=== PATIENT | male | born 1940 | race Caucasian/White ===

== ENCOUNTER 2017-04-21 18:28 | Emergency (ER) | payer OTHER ==
[~2017-04-21] VITALS: Ht 172.7 cm; Wt 45.4 kg
[2017-04-21 19:09] LABS: Basophils # (auto) 0 uL; Basophils % (auto) 0.3 % (0.0-2.0); CONDITION Y; Eosinophils # (auto) 0.1 uL; Eosinophils % (auto) 0.7 % (0.0-7.0); Hematocrit 36.3 % (41.0-53.0); Hemoglobin 12.1 g/dL (13.5-17.5); Lymphocytes # (auto) 1.1 uL; Lymphocytes % (auto) 13.7 % (10.0-50.0); Mean Corpuscular Hemoglobin 32.2 pg (28.0-32.0); Mean Corpuscular Hgb Conc. 33.2 g/dL (32.0-36.0); Mean Platelet Volume 7.6 fL (7.4-10.4); Monocytes # (auto) 0.8 uL; Monocytes % (auto) 10.1 % (0.0-12.0); Neutrophils # (auto) 6.1 uL; Neutrophils % (auto) 75.2 % (37.0-80.0); Platelet Count (auto) 366 10^3/uL (140-450); Red Cell Distribution Width 14.5 % (11.6-16.0); White Blood Cell 8.1 10^3/uL (4.4-10.8)
[2017-04-21 19:31] LABS: Calcium 8.2 mg/dL (8.5-10.1); Chloride 109 mmol/L (98-107); Potassium 3.8 mmol/L (3.5-5.1); Sodium 141 mmol/L (136-145)
[2017-04-21 19:35] LABS: Albumin 2.3 g/dL (3.4-5.0); Anion Gap 10 (5-15); Aspartate Aminotransferase 195 U/L (15-37); BUN/Creatinine Ratio 32.9; Blood Urea Nitrogen 26 mg/dL (7-18); Carbon Dioxide 22 mmol/L (21-32); GFR African American 122 mL/min; GFR Non-African American 101 mL/min; Glucose 107 mg/dL (74-106); Magnesium 2.3 mg/dL (1.6-2.6)
[2017-04-21 19:39] LABS: Alkaline Phosphatase 127 U/L (45-117); Bilirubin, Total 0.4 mg/dL (0.2-1.0); Total Protein 6.5 g/dL (6.4-8.2)
[2017-04-21] MEDS ORDERED: SODIUM CHLORIDE 0.9% 1,000 ML IV ONE (22:17)
[2017-04-21 23:00] LABS: INR 0.95 (0.9-1.15); Partial Thromboplastin Time 29.5 sec (22.64-33.71); Prothrombin Time 10.4 sec (9.37-12.3)
[2017-04-21 23:08] LABS: Temperature: 21.1 C (20.0-25.0)
[2017-04-21] MEDS ORDERED: IOHEXOL 350 MG/ML 100ML IJ ONE (23:16)
[2017-04-22] MEDS ORDERED: LEVOFLOXACIN 750MG 150 ML IV ONE (01:30)
[2017-04-22] MEDS ORDERED: TEMAZEPAM 15 MG CAP PO ONE (01:45)
[2017-04-22 03:10] VITALS: BP 97/68
== END 2017-04-22 03:23 | disposition short-term general hospital (02) ==
LOC: EDBD 18:28 → ER 18:30
DX: J44.1 Chronic obstructive pulmonary disease with (acute) exacerbation (principal); J18.9 Pneumonia, unspecified organism; E03.9 Hypothyroidism, unspecified; I25.810 Atherosclerosis of coronary artery bypass graft(s) without angina pectoris; J90 Pleural effusion, not elsewhere classified; I11.0 Hypertensive heart disease with heart failure; I50.9 Heart failure, unspecified; I25.2 Old myocardial infarction
CPT/HCPCS: 36415; 71010; 71260; 80053; 83735; 83880; 84443; 84484; 85025; 85379; 85610; 85730; 87040; 93005; 94761; 96361; 96365; 99285; J1956; J7030; Q9967